=== PATIENT | male | born 1980 | race Hispanic/Latino ===

== ENCOUNTER 2018-02-15 07:13 | Observation (INO) | payer BC ==
[~2018-02-15] VITALS: Ht 180.3 cm; Wt 122.9 kg
[2018-02-15] MEDS ORDERED: ONDANSETRON HCL INJ 2 MG/ML VIAL IV STA (07:29)
[2018-02-15] MEDS ORDERED: MORPHINE SULFATE 2 MG/ML SYR IV STA (07:29)
[2018-02-15] MEDS ORDERED: NITROGLYCERIN 0.4 MG SUBL SL ONE (07:30)
[2018-02-15] MEDS ORDERED: ASPIRIN 81 MG CHEW TAB PO ONE ×2 (07:30→13:15)
--- NOTE | 2018-02-15 09:18 | Diagnostic Imaging Report ---
PROCEDURE:CT ANGIO CHEST-HOPD COMPARISON:None. INDICATIONS:CHEST PAIN Technique: Helical axial images of the thorax were obtained after the intravenous administration of 86 cc Isovue-300 per pulmonary embolus protocol. Coronal and sagittal reformatted images were available for review. FINDINGS: Vasculature: The main pulmonary artery, right and left pulmonary arteries, and their visualized lobar and segmental branches are patent, without evidence of filling defect. The pulmonary outflow tract is of normal caliber. There is no ectasia or aneurysmal dilatation of the thoracic aorta. Lungs: Trace groundglass and reticular opacity in the dependent portions of the lower lobes compatible with subsegmental atelectasis. No consolidation, bronchiectasis, or fibrotic change. The trachea, mainstem bronchi, and central lobar and segmental bronchi are patent without filling defects. Small diverticulum projects from the anterior aspect of the distal right mainstem bronchus. Mediastinum: The visualized portions of the thyroid gland appear normal. No axillary, hilar, or mediastinal lymphadenopathy. Normal heart size without pericardial effusion. No right ventricular dilatation or interventricular septal bowing. Upper abdomen: The visualized portions of the liver, spleen, pancreas, adrenals, and upper poles of the kidneys are unremarkable. The gallbladder has been removed. Soft tissues: There is a 6.5 cm transverse by 4 cm AP ovoid hyperattenuating lesion in the subcutaneous fat of the left lower posterior cervical region partially visualized, with average internal attenuation 80-90 Hounsfield units. Otherwise no focal soft tissue abnormalities. Bones: No osseous destructive lesion. Mild degenerative disc changes of the thoracic spine. CONCLUSION: No evidence of pulmonary embolus to the level of the segmental branch pulmonary arteries. 6.5 cm hyperattenuating ovoid lesion in the partially visualized posterior left lower cervical subcutaneous fat may represent a hematoma if there is a history of antecedent trauma. In the absence of recent trauma this may represent a mass lesion arising from the chest wall musculature or within the subcutaneous fat, and MRI of the area of interest with and without contrast is suggested for further evaluation. Dictated by: Darius Basurto M.D. on 02/15/2018 at 9:24 Electronically approved by: Darius Basurto M.D. on 02/15/2018 at 9:24
[2018-02-15] MEDS ORDERED: IOPAMIDOL 370 MG/ML 50ML INFUS..BTL INJ ONE (09:45)
[2018-02-15] MEDS ORDERED: ENOXAPARIN SODIUM INJ 100 MG/ML SYR SC STA (10:08)
[2018-02-15] MEDS ORDERED: MORPHINE SULFATE 2 MG/ML SYR IV PRN (10:15)
[2018-02-15] MEDS ORDERED: NITROGLYCERIN 2% OINT 1 GM PKT TOP ONE (10:15)
[2018-02-15] MEDS ORDERED: ONDANSETRON HCL INJ 2 MG/ML VIAL IV PRN (10:15)
[2018-02-15] MEDS ORDERED: NITROGLYCERIN 0.4 MG SUBL SL PRN (10:15)
[2018-02-15] MEDS ORDERED: LOSARTAN POTAS100 MG PO (10:59)
[2018-02-15 11:38] VITALS: BP 141/85
[2018-02-15] MEDS ORDERED: NITROGLYCERIN 2% OINT 1 GM PKT TOP SCH (12:00)
[2018-02-15 13:07] VITALS: BP 141/85
[2018-02-15 14:12] LABS: CREATINE KINASE 299 IU/L (30-200)
[2018-02-15] MEDS ORDERED: ACETAMINOPHEN 325 MG TAB PO PRN (14:15)
[2018-02-15 16:32] VITALS: BP 120/68
--- NOTE | 2018-02-15 17:20 | History and Physical ---
PRIMARY CARE PHYSICIAN: Dr. Westley Zavala. CHIEF COMPLAINT: Chest pain. HISTORY OF PRESENT ILLNESS: Patient is a 37-year-old male, came into the outpatient emergency room complaining of left-sided chest pain. Chest pain is nonradiating. No nausea or vomiting. Chest pain is pressure like, reproducible with pressure. Chest pain is about 7 out of 10 stent. Patient's initial cardiac enzyme has been negative. He does have a white cell count of 13.9 thousand. The patient is otherwise stable at this time. His BUN and creatinine were stable at 8 and 0.8 respectively. He had a chest CT scan done. CTA of the chest was negative. The patient is stable. EKG in the emergency room showed normal sinus rhythm. PAST MEDICAL HISTORY: Hypertension. PAST SURGICAL HISTORY: Cholecystectomy. SOCIAL HISTORY: Patient does not smoke tobacco or drink alcohol. He does occasionally smoke marijuana. FAMILY HISTORY: His father had coronary disease at the age of 40s. He . ALLERGIES: TO NO KNOWN ALLERGY. HOME MEDICATIONS: This is available for review. REVIEW OF SYSTEMS: Left-sided chest pain. Left leg pain. No nausea or vomiting. No abdominal pain. Left lower extremity pain in the anterior muscular area below the knee. PHYSICAL EXAMINATION: VITAL SIGNS: Temperature is 97. Blood pressure 141/85. Pulse rate is 63. Respiration 18. GENERAL: The patient is not in acute distress. He is awake. HEENT: Normocephalic, atraumatic, anicteric. NECK: Supple grossly. PULMONARY: Diminished breath sounds without any wheezes or rales. CARDIOVASCULAR: S1 and S2. Regular rate and rhythm. ABDOMEN: Soft, nontender. No distention. EXTREMITIES: No gross cyanosis or edema. NEUROLOGIC: No gross focal deficit. LABORATORY: Sodium is 139, potassium 4.1, chloride 102, bicarb 27, BUN is 8, creatinine 0.8, glucose is 103. Liver enzyme is unremarkable. WBC is 13.9. Hemoglobin 16.8. Hematocrit 51. Platelets are 275. EKG is normal sinus rhythm. CTA of the chest, preliminary negative. IMPRESSION: 1. Left-sided chest pain, nonradiating. No nausea or vomiting. Reproducible with pressure. Pain 7 out of 10, improving. 2. Hypertension. 3. Overweight. 4. Left lower extremity pain. PLAN: Echocardiogram. Consultation with Dr. Vaughn Canas. Continue with home medication, if any. Cardiac enzymes. Will monitor the patient closely. Patient may need a stress test in the morning. Job#: [id number] EV
--- NOTE | 2018-02-15 19:19 | Consultation ---
DATE OF CONSULTATION: February 15, 2018 Thank you so much for asking me to see this nice man in consultation. HISTORY OF PRESENT ILLNESS: Mr. Flores is a pleasant 37-year-old man who was presented to the emergency room today with a complaint of left-sided chest discomfort. Patient reports he has had chest discomfort off and on and his family physician advised him if it lasted longer or became more severe, he should visit the hospital. Patient reports that he has had some left leg discomfort as well and that these things may happen at the same time. He adds that he had biopsy of a mass in the left posterior neck about a month ago and is waiting to have excision of this mass. PAST MEDICAL HISTORY: Significant for hypertension for which the patient takes losartan 50 mg daily. He has had remote cholecystectomy. SOCIAL HISTORY: Patient does not smoke or drink. PHYSICAL EXAMINATION GENERAL: A large man who is relatively comfortable. HEAD, EYES, EARS, NOSE, THROAT: Unremarkable. NECK: The posterior neck has mass that by CT is reported 6.5 x 4 cm. It is hyperattenuating. It is mobile, somewhat tender. THORAX: Heart sounds S1 and S2 are equal. No murmurs. Left chest wall is mildly tender. ABDOMEN: Protuberant. Normal bowel sounds. EXTREMITIES: No cyanosis, clubbing or edema. The left leg does not have any edema and nontender to the touch. EKG is normal. LABORATORY STUDIES: CK of 299, CK-MB 6.5, troponin I less than 0.001. Drug screen shows cannabinoids and benzodiazepines. ASSESSMENT 1. Atypical chest discomfort. 2. Hypertension. 3. The left posterior chest mass. PLAN: Will perform Lexiscan Myoview in the morning to further assess cardiac status and help plan surgical removal of this mass for this nice man. Thank for asking me to see him in consultation. Job#: [id number]
[2018-02-15 20:00] VITALS: BP 130/68
[2018-02-15 22:06] LABS: CREATINE KINASE 231 IU/L (30-200)
[2018-02-16] VITALS: BP 113/58
[2018-02-16 00:50] VITALS: BP 113/58
[2018-02-16 04:00] VITALS: BP 115/69
[2018-02-16 05:15] LABS: BASOPHILS # (AUTO) 0.1 (0.0-0.1); BASOPHILS % 0.4 % (0.0-1.0); EOSINOPHILS # (AUTO) 0.3 (0.0-0.4); HEMOGLOBIN 15.2 g/dL (14.0-18.0); LYMPHOCYTES # (AUTO) 3.2 (1.0-3.2); MEAN CORPUSCULAR HEMOGLOBIN 30.3 pg (28-32); MEAN CORPUSCULAR HGB CONC 33.8 g/dL (31-35); MEAN CORPUSCULAR VOLUME 89.8 fL (81-99); MONOCYTES # (AUTO) 0.9 (0.2-0.8); MONOCYTES % 7.3 % (4.4-11.3); NEUTROPHILS # (AUTO) 8.3 (2.1-6.9); PLATELET COUNT 270 x10e3/uL (140-360); RED BLOOD COUNT 5.01 x10e6/uL (4.3-5.7)
[2018-02-16 05:56] LABS: ALANINE AMINOTRANSFERASE 51 IU/L (0-55); ALBUMIN 3.8 g/dL (3.5-5.0); ALBUMIN/GLOBULIN RATIO 1.3 (0.8-2.0); ALKALINE PHOSPHATASE 53 IU/L (40-150); ANION GAP 12.1 mmol/L (8-16); BLOOD UREA NITROGEN 12 mg/dL (7-26); BUN/CREATININE RATIO 12 (6-25); CALCIUM 9.2 mg/dL (8.4-10.2); CARBON DIOXIDE 29 mmol/L (22-29); CHLORIDE 104 mmol/L (98-107); CHOL/HDL RATIO 4.7 (3.9-4.7); CHOLESTEROL 151 MD/DL (0-199); CREATININE, SERUM 1.04 mg/dL (0.72-1.25); EST GLOMERULAR FILTRATION RATE > 60 ML/MIN (60-); GLUCOSE 102 mg/dL (74-118); HDL CHOLESTEROL 32 MG/DL (40-60); LDL CHOLESTEROL 81 MG/DL (60-130); POTASSIUM 4.1 mmol/L (3.5-5.1); SODIUM 141 mmol/L (136-145); TRIGLYCERIDES 190 MG/DL (0-149)
[2018-02-16 08:26] VITALS: BP 110/67
[2018-02-16] MEDS ORDERED: ASPIRIN 325 MG TAB EC PO SCH (09:00)
[2018-02-16] MEDS ORDERED: LOSARTAN POTASSIUM 100 MG TAB PO SCH (09:00)
[2018-02-16] MEDS ORDERED: CELEBREX100 MG PO (12:02)
[2018-02-16 12:26] VITALS: BP 177/83
== END 2018-02-16 13:25 | disposition home or self-care (01) ==
LOC: FSED 07:13 → ERHOLD 10:37 → IMCU 11:39
PROVIDERS: ADMIT Internal Medicine; ATTEND Internal Medicine
DX: R07.2 Precordial pain (principal); Z82.49 Family history of ischemic heart disease and other diseases of the circulatory system; I10 Essential (primary) hypertension; E66.9 Obesity, unspecified; M79.662 Pain in left lower leg; R22.2 Localized swelling, mass and lump, trunk
CPT/HCPCS: 36415 ×2; 71275; 80053 ×2; 80061; 80076; 80307; 81003; 82550; 82553; 83880; 84484; 85025 ×2; 85379; 85610; 93005; 93017; 93306; 93971; 99284; G0378 ×2; J1650; J2270; J2405; Q9967